=== PATIENT | female | born 1955 | race African-American/Black ===

== ENCOUNTER 2018-09-22 10:47 | Inpatient (IN) | payer BC ==
[~2018-09-22] VITALS: Ht 167.6 cm; Wt 92.5 kg
[~2018-09-22 10:47] MED LIST: AMLO10TA80 PO; NABU-90 PO; TRAM1TAB33 PO
[2018-09-22 12:10] LABS: HEMATOCRIT. 40.1 % (36.0-48.0); HEMOGLOBIN. 13.1 g/dL (12.0-16.0); MEAN CORPUSCULAR HEMOGLOBIN 26.5 pg (28.0-32.0); MEAN PLATELET VOLUME 7.9 fl (7.4-10.4); PLATELET 251 x1000/uL (130-400); RED BLOOD CELL COUNT 4.95 mill/uL (4.2-5.4)
[2018-09-22 12:17] LABS: CHLORIDE 110 mEq/L (98-107)
[2018-09-22 12:21] LABS: PARTIAL THROMBOPLASTIN TIME 29.5 sec (23.4-31.0); PROTHROMBIN TIME 10.4 sec (9.6-11.0)
[2018-09-22 12:29] LABS: PLATELET ESTIMATE NORMAL
[2018-09-22 13:20] LABS: CLARITY URINE CLOUDY (CLEAR); COLOR URINE YELLOW (YELLOW); KETONES URINE TRACE (NEGATIVE); LEUKOCYTE ESTERASE URINE 2+ (NEGATIVE); NITRITE URINE NEGATIVE (NEGATIVE); OCCULT BLOOD URINE NEGATIVE (NEGATIVE); PH URINE 5.5 (4.5-8.0); PROTEIN URINE NEGATIVE (NEGATIVE); SPECIFIC GRAVITY URINE 1.019 (1.005-1.030); UROBILINOGEN URINE 0.2 E.U./dL (0.2-1.0)
[2018-09-22 13:31] LABS: *AMPHETAMINES SCREEN URINE NEGATIVE (NEGATIVE); *BENZODIAZEPINES SCREEN URINE NEGATIVE (NEGATIVE); *COCAINE SCREEN URINE NEGATIVE (NEGATIVE); METHADONE URINE SCREEN NEGATIVE (NEGATIVE)
[2018-09-22 13:32] LABS: *BARBITURATES SCREEN URINE NEGATIVE (NEGATIVE); CANNABINOID URINE SCREEN NEGATIVE (NEGATIVE); OPIATES URINE SCREEN NEGATIVE (NEGATIVE); PHENCYCLIDINE URINE SCREEN NEGATIVE (NEGATIVE)
[2018-09-22 16:00] VITALS: BP_SYST 130; BP_SYST 137; BP_DIAS 66; BP_DIAS 74; BP_DIAS 80
[2018-09-22] MEDS ORDERED: TEMAZEPAM 15MG CAPSULE PO PRN (16:45)
[2018-09-22] MEDS: MECLIZINE 25MG TABLET PO PRN (17:50)
[2018-09-22 19:30] VITALS: BP 130/66
[2018-09-22 20:00] VITALS: BP 141/83
[2018-09-22] MEDS ORDERED: MAGNESIUM/ALUMINUM HYDROXIDE/SIMETHICONE 30ML UDC PO PRN (20:30)
[2018-09-22] MEDS ORDERED: DIPHENHYDRAMINE 50MG/ML VIAL IV PRN (20:30)
[2018-09-22] MEDS ORDERED: ONDANSETRON HCL 4MG/2ML INJ IV PRN (20:30)
[2018-09-22] MEDS ORDERED: ACETAMINOPHEN 325MG TABLET PO PRN (20:30)
[2018-09-22] MEDS ORDERED: IPRATROPIUM/ALBUTEROL 0.5-3(2.5)MG/3ML NEB INH PRN (20:30)
[2018-09-22] MEDS ORDERED: GUAIFENESIN 200MG/10ML SUGAR FREE UDC PO PRN (20:30)
[2018-09-22] MEDS: SODIUM CHLORIDE 0.9% INJ 3ML FLUSH IVF SCH (21:39)
[2018-09-23] VITALS: BP 122/77
[2018-09-23 04:00] VITALS: BP 126/73
[2018-09-23] MEDS: SODIUM CHLORIDE 0.9% INJ 3ML FLUSH IVF SCH ×2 (05:33→13:41)
[2018-09-23 08:00] VITALS: BP 128/70
[2018-09-23] MEDS ORDERED: AMLODIPINE 10MG TABLET PO SCH (09:00)
[2018-09-23] MEDS: MECLIZINE 25MG TABLET PO PRN (10:46)
[2018-09-23 15:28] VITALS: BP 119/63
== END 2018-09-23 16:28 | disposition home or self-care (01) | DRG 309 ==
LOC: ER 10:47 → EDBEDREQ 13:40 → ENRESERV 13:55 → 8WST 14:37
PROVIDERS: ADMIT Internal Medicine; ATTEND Internal Medicine
DX: R00.1 Bradycardia, unspecified (principal); N39.0 Urinary tract infection, site not specified; R42 Dizziness and giddiness; I10 Essential (primary) hypertension; F17.200 Nicotine dependence, unspecified, uncomplicated; J44.9 Chronic obstructive pulmonary disease, unspecified; Z82.49 Family history of ischemic heart disease and other diseases of the circulatory system; Z79.899 Other long term (current) drug therapy; Z79.1 Long term (current) use of non-steroidal anti-inflammatories (NSAID); Z83.3 Family history of diabetes mellitus
CPT/HCPCS: 36415; 70551; 71045; 80061; 80305; 84484; 93005; 93306; 97162; 99285; J8597